=== PATIENT | female | born 1940 | race Caucasian/White ===

== ENCOUNTER → 2017-11-03 | Emergency (ER) | payer OTHER ==
[~2017-11-03] VITALS: Ht 149.9 cm; Wt 55.8 kg
[~2017-11-03] MED LIST: AMLODIPINE BESYL5 MG; ATENOLOL100 MG PO; AVALIDE 150-12.1 TA1 PO; BICARSIM FORTE125 MG PO; FOSAMAX70 MG; GASTRINEX CAPSU1 CAP PO; HYZAAR 100-121 UDTAB; PREVACID30 MG PO; SYNTHROID50 MCG PO; ZOCOR20 MG PO
== END | disposition home or self-care (01) ==
LOC: ER 04:19
DX: R53.1 Weakness (principal)

== ENCOUNTER 2018-05-05 10:37 | Emergency (ER) | payer OTHER ==
[~2018-05-05] VITALS: Ht 147.3 cm; Wt 55.8 kg
[~2018-05-05 10:37] MED LIST changes: +CALTRATE 600+D1 EAC1; +PROTONIX40 MG; +SYNTHROID88 MCG; +TOPROL XL25 MG
[2018-05-05] MEDS ORDERED: CARAFATE1 GM/10 ML PO (14:50)
== END 2018-05-05 15:56 | disposition home or self-care (01) ==
LOC: ER 10:37
DX: K29.70 Gastritis, unspecified, without bleeding (principal)

== ENCOUNTER 2021-07-06 22:41 | Emergency (ER) | payer OTHER ==
[~2021-07-06] VITALS: Ht 147.3 cm; Wt 49.4 kg
[~2021-07-06 22:41] MED LIST changes: +CARAFATE1 GM/10 ML PO
== END 2021-07-07 06:52 | disposition home or self-care (01) ==
LOC: ER 22:41
DX: R10.32 Left lower quadrant pain (principal)

== ENCOUNTER 2022-02-08 13:05 | Emergency (ER) | payer OTHER ==
[~2022-02-08] VITALS: Ht 152.4 cm; Wt 49.9 kg
[2022-02-08] MEDS ORDERED: HYDRODIURIL12.5 MG PO (14:22)
[2022-02-08] MEDS ORDERED: SERTRALINE20 MG/1 ML PO (14:22)
[2022-02-08] MEDS ORDERED: PANTOPRAZOLE SO40 M2 PO (14:22)
[2022-02-08] MEDS ORDERED: ATORVASTATIN CA10 MG PO (14:23)
[2022-02-08] MEDS ORDERED: TOPROL XL25 M1 (14:23)
[2022-02-08] MEDS ORDERED: ZOFRAN8 MG PO (17:04)
== END 2022-02-08 17:06 | disposition home or self-care (01) ==
LOC: ER 13:05
DX: K59.00 Constipation, unspecified (principal); R10.84 Generalized abdominal pain; I10 Essential (primary) hypertension

== ENCOUNTER 2022-04-21 09:22 | Emergency (ER) | payer OTHER ==
[~2022-04-21] VITALS: Ht 157.5 cm; Wt 49.0 kg
[~2022-04-21 09:22] MED LIST changes: +ATORVASTATIN CA10 MG PO; +HYDRODIURIL12.5 MG PO; +PANTOPRAZOLE SO40 M2 PO; +SERTRALINE20 MG/1 ML PO; +TOPROL XL25 M1; +ZOFRAN8 MG PO
== END 2022-04-21 20:26 | disposition home or self-care (01) ==
LOC: ER 09:22
DX: K59.00 Constipation, unspecified (principal); R10.84 Generalized abdominal pain; I10 Essential (primary) hypertension; Z88.0 Allergy status to penicillin; Z88.5 Allergy status to narcotic agent; Z88.6 Allergy status to analgesic agent; Z88.8 Allergy status to other drugs, medicaments and biological substances

== ENCOUNTER 2022-05-10 23:42 | Inpatient (IN) | payer OTHER ==
[~2022-05-10] VITALS: Ht 152.4 cm; Wt 49.0 kg
[2022-05-11] MEDS ORDERED: LIPITOR40 M1 (00:15)
[2022-05-11] MEDS ORDERED: LEVOTHYROXINE25 MCG (00:15)
--- NOTE | 2022-05-11 00:17 | NUR ---
PTE ALERTA Y ORIENTADA X 3 ESFERAS QUIEN REFIERE DOLOR ABDOMINAL Y VOMITOS DESDE HACE 4 SANDRA Y NO PODER EVACUAR.
--- NOTE | 2022-05-11 01:52 | NUR ---
SE ORIENTA PTE SOBRE TX MEDICO EL CUAL REFIERE ENTENDER.SE LE EXTRAEN MUESTRAS BAJO MEDIDAS ASEPTICAS,SE CANALIZA Y SE ADMINISTRA MEDICAMENTO OLAF ORDEN MEDICA,PTE CONTINUA CON VOMITOS,NO SE ENTREGA CONTRASTE,SE NOTIFICA CT PENDIENTE.
--- NOTE | 2022-05-11 05:56 | NUR ---
PTE EVACUA Y SE LE ASISTE EN CAMBIO DE PANAL,SE NOTIFICA A DR JOHNS Y SE D/C ENEMA.
--- NOTE | 2022-05-11 10:59 | NUR ---
PACIENTE PENDIENTE DE CONSULTA POR INSTRUCCIONES INTESTINAL.
--- NOTE | 2022-05-11 15:50 | NUR ---
PTE ALERTA Y ORIENTADA X3, SE RECIBE PTE EN CAMA CON BARANDAS ELEVADAS. PTE CANALIZADA AREA SEA DE EDEMA Y DE ENROJECIMIENTO.PTE SE ASISTE CON ELISABETH PARA ANTONI DE MUESTRA DE U/A. PTE EN ESPERA DE CONSULTA CON MEDICINA INTERNA.
== END 2022-05-17 23:08 | disposition home or self-care (01) | DRG 390 ==
LOC: ER 23:42 → SURG 05-11 23:05
PROVIDERS: ADMIT Surgery; ATTEND Surgery
PROC: BW21ZZZ Computerized Tomography (CT Scan) of Abdomen and Pelvis (ICD-10-PCS; principal; 2022-05-11)
DX: K56.41 Fecal impaction (principal); R10.9 Unspecified abdominal pain; R14.0 Abdominal distension (gaseous); I10 Essential (primary) hypertension; E03.9 Hypothyroidism, unspecified; Z20.822 Contact with and (suspected) exposure to COVID-19

== ENCOUNTER 2022-10-30 13:54 | Emergency (ER) | payer OTHER ==
[~2022-10-30] VITALS: Ht 152.4 cm; Wt 47.2 kg
[~2022-10-30 13:54] MED LIST changes: +LEVOTHYROXINE25 MCG; +LIPITOR40 M1
[2022-10-30] MEDS ORDERED: DOCUSATE CALCI240 MG PO (14:04)
[2022-10-30] MEDS ORDERED: PEPCID AC20 MG PO (14:05)
[2022-10-30] MEDS ORDERED: COZAAR50 MG PO (14:06)
[2022-10-30] MEDS ORDERED: CIPRO500 MG PO (16:25)
== END 2022-10-30 18:30 | disposition home or self-care (01) ==
LOC: ER 13:54
DX: N30.01 Acute cystitis with hematuria (principal); I10 Essential (primary) hypertension; M81.0 Age-related osteoporosis without current pathological fracture; E03.9 Hypothyroidism, unspecified; K59.00 Constipation, unspecified; Z88.6 Allergy status to analgesic agent; Z88.2 Allergy status to sulfonamides; Z88.0 Allergy status to penicillin; K57.30 Diverticulosis of large intestine without perforation or abscess without bleeding

== ENCOUNTER 2024-01-25 09:49 | Emergency (ER) | payer OTHER ==
[~2024-01-25] VITALS: Ht 162.6 cm; Wt 49.9 kg
[~2024-01-25 09:49] MED LIST changes: +CIPRO500 MG PO; +COZAAR50 MG PO; +DOCUSATE CALCI240 MG PO; +PEPCID AC20 MG PO
== END 2024-01-25 14:18 | disposition home or self-care (01) ==
LOC: ER 09:49
DX: M25.552 Pain in left hip (principal); Z88.0 Allergy status to penicillin; Z88.6 Allergy status to analgesic agent; E78.00 Pure hypercholesterolemia, unspecified; I10 Essential (primary) hypertension